=== PATIENT | male | born 1985 | race Caucasian/White ===

== ENCOUNTER 2017-09-21 22:08 | Emergency (ER) | END 2017-09-22 04:54 | disposition home or self-care (01) | DX: S02.32XA Fracture of orbital floor, left side, initial encounter for closed fracture (principal); S01.112A Laceration without foreign body of left eyelid and periocular area, initial encounter; F17.200 Nicotine dependence, unspecified, uncomplicated; Y04.2XXA Assault by strike against or bumped into by another person, initial encounter ==